=== PATIENT | male | born 1990 | race Caucasian/White ===

== ENCOUNTER 2019-02-08 18:53 | Emergency (ER) | payer BC, OTHER ==
[2019-02-08] MEDS ORDERED: Benzocaine 20% Topical Spray UD MUCMEM ONE (19:34)
[2019-02-08] MEDS ORDERED: Lidocaine 2% Viscous Solution 15 ML Cup PO ONE (19:34)
--- NOTE | 2019-02-08 19:40 | EDM.PDOC ---
ED HPI GENERAL MEDICAL PROBLEM - General Chief Complaint: ENT Problem Stated Complaint: PT HAS SWOLLEN FACE Time Seen by Provider: 02/08/19 19:34 Source of Information: Reports: Patient History Limitations: Reports: No Limitations - History of Present Illness INITIAL COMMENTS - FREE TEXT/NARRATIVE: HISTORY AND PHYSICAL: History of present illness: Patient is a 28-year-old male who presents to the emergency room with complaints of dental pain and facial swelling. He states he has taken some tramadol for home without any pain relief. Patient did receive a prescription for Clindamycin and Iona from [facility]. He has had one dose of his Clindamycin earlier today. Patient denies any fever, chills, headache, change in vision, syncope or near syncope. Denies any chest pain, back pain, shortness of breath or cough. Denies any abdominal pain, nausea, vomiting, diarrhea, constipation or dysuria. Has not noted any blood in urine or stool. Patient has been eating and drinking appropriately. Review of systems: As per history of present illness and below otherwise all systems reviewed and negative. Past medical history: As per history of present illness and as reviewed below otherwise noncontributory. Surgical history: As per history of present illness and as reviewed below otherwise noncontributory. Social history: See social history for further information Family history: As per history of present illness and as reviewed below otherwise noncontributory. Physical exam: General: Well-developed and well-nourished 28-year-old male. Alert and oriented. Nontoxic appearing and in no acute distress. HEENT: Atraumatic, normocephalic, pupils equal and reactive bilaterally, negative for conjunctival pallor or scleral icterus, mucous membranes moist, TMs normal bilaterally, soft tissue swelling to upper jawline. Erythema and swelling of the gumline at #14-15. throat clear, neck supple, nontender, trachea midline. No drooling or trismus noted. No meningeal signs. No hot potato voice noted. Lungs: Clear to auscultation, breath sounds equal bilaterally, chest nontender. Heart: S1S2, regular rate and rhythm without overt murmur Abdomen: Soft, nondistended, nontender. Negative for masses or hepatosplenomegaly. Negative for costovertebral tenderness. Pelvis: Stable nontender. Genitourinary: Deferred. Rectal: Deferred. Skin: Intact, warm, dry. No lesions or rashes noted. Extremities: Atraumatic, moves all extremities per self with difficulty or deficits, negative for cords or calf pain. Neurovascular unremarkable. Neuro: Awake, alert, oriented. Cranial nerves II through XII unremarkable. Cerebellum unremarkable. Motor and sensory unremarkable throughout. Exam nonfocal. Notes: Patient was already seen and evaluated in [place]. He has appropriate prescriptions available to him. He request something for his infection. Will give Rocephin IM now. We discussed the need for appropriate follow-up with the dentist. Supportive care measures were reviewed and discussed. Voices understanding and is agreeable to plan of care. Denies any further questions or concerns at this time. Diagnostics: None Therapeutics: Dental Balls, Rocephin Prescription: None Impression: Dental Abscess Plan: 1. Please take the antibiotic as prescribed. 2. Tylenol and/or ibuprofen as needed for pain management. "Tooth Balls" have been given to you; apply along the gumline every 2-3 hours as needed. Do not swallow these; external use only. Iona for moderate to severe pain (you already have this prescribed to you). 3. Follow-up with a dentist for definitive care. Return to the ED as needed and as discussed. Definitive disposition and diagnosis as appropriate pending reevaluation and review of above. 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 ED EXAM, ENT - Physical Exam Exam: See Below (See dictation) Course - Vital Signs Last Recorded V/S: Last Vital Signs Temp 98.5 F 02/08/19 19:20 Pulse 95 02/08/19 19:20 Resp 18 02/08/19 19:20 BP 144/100 H 02/08/19 19:20 Pulse Ox 99 02/08/19 19:20 - Orders/Labs/Meds Meds: Medications Discontinued Medications Generic Name Dose Route Start Last Admin Trade Name Freq PRN Reason Stop Dose Admin Benzocaine 2 each 02/08/19 19:34 Hurricaine One 20% MUCMEM 02/08/19 19:35 ONETIME ONE Ceftriaxone Sodium 1 gm 02/08/19 19:41 Rocephin IM 02/08/19 19:42 ONETIME ONE Lidocaine HCl 15 ml 02/08/19 19:34 Xylocaine 2% Viscous PO 02/08/19 19:35 ONETIME ONE Departure - Departure Time of Disposition: 19:42 Disposition: Home, Self-Care 01 Clinical Impression: Dental abscess - Discharge Information Instructions: Dental Abscess, [id number] Referrals: PCP,None [Primary Care Provider] - Forms: ED Department Discharge Additional Instructions: The following information is given to patients seen in the emergency department who are being discharged to home. This information is to outline your options for follow-up care. We provide all patients seen in our emergency department with a follow-up referral. The need for follow-up, as well as the timing and circumstances, are variable depending upon the specifics of your emergency department visit. If you don't have a primary care physician on staff, we will provide you with a referral. We always advise you to contact your personal physician following an emergency department visit to inform them of the circumstance of the visit and for follow-up with them and/or the need for any referrals to a consulting specialist. The emergency department will also refer you to a specialist when appropriate. This referral assures that you have the opportunity for follow-up care with a specialist. All of these measure are taken in an effort to provide you with optimal care, which includes your follow-up. Under all circumstances we always encourage you to contact your private physician who remains a resource for coordinating your care. When calling for follow-up care, please make the office aware that this follow-up is from your recent emergency room visit. If for any reason you are refused follow-up, please contact the [facility] Emergency Department at and asked to speak to the emergency department charge nurse. [facility] [address] [place] [address] [address] 1. Please take the antibiotic as prescribed. 2. Tylenol and/or ibuprofen as needed for pain management. "Tooth Balls" have been given to you; apply along the gumline every 2-3 hours as needed. Do not swallow these; external use only. Iona for moderate to severe pain (you already have this prescribed to you). 3. Follow-up with a dentist for definitive care. Return to the ED as needed and as discussed.
[2019-02-08] MEDS ORDERED: cefTRIAXone 1 GM Vial IM ONE (19:41)
== END 2019-02-08 20:18 | disposition home or self-care (01) ==
LOC: MW.ED 18:53
DX: K04.7 Periapical abscess without sinus (principal)
CPT/HCPCS: 96372; 99282; A9270; J0696; J2001

== ENCOUNTER 2019-02-09 09:59 | Observation (INO) | payer BC, OTHER ==
--- NOTE | 2019-02-09 10:27 | EDM.PDOC ---
ED HPI GENERAL MEDICAL PROBLEM - General Chief Complaint: Allergic Reaction Stated Complaint: SWOLLEN FACE Time Seen by Provider: 02/09/19 10:22 Source of Information: Reports: Patient History Limitations: Reports: No Limitations - History of Present Illness INITIAL COMMENTS - FREE TEXT/NARRATIVE: HISTORY AND PHYSICAL: History of present illness: Patient is a 28-year-old male who presents to the ED today for concern of spreading infection from his tooth. Patient states that he was seen in the ED yesterday and was given antibiotic and the ED. He states he started taking his other prescription of clindamycin when he got home from the ED. Patient states that when he awoke the infection had spread up into his left eye. Patient rates his pain a 9 out of 10. Patient was seen yesterday (02/08/2019) in the ED for dental abscess. At that time he was given Rocephin IM, dental balls and instructed to continue his currently prescribed clindamycin/pain medications and follow up with a dentist. Patient states he did take antibiotics as prescribed. Patient denies fever, chills, chest pain, shortness of breath, or cough. Denies headache, neck stiff ness, change in vision, syncope, or near syncope. Denies nausea, vomiting, abdominal pain, diarrhea, constipation, or dysuria. Patient has been eating and drinking appropriately but has had difficulty due to tooth pain. Review of systems: As per history of present illness and below otherwise all systems reviewed and negative. Past medical history: As per history of present illness and as reviewed below otherwise noncontributory. Surgical history: As per history of present illness and as reviewed below otherwise noncontributory. Social history: See social history for further information Family history: As per history of present illness and as reviewed below otherwise noncontributory. Physical exam: General: Patient is alert, oriented, and in no acute distress. He is sitting comfortably on exam table. HEENT: Atraumatic, normocephalic, pupils equal and reactive bilaterally, negative for conjunctival pallor or scleral icterus, mucous membranes moist, TMs normal bilaterally, throat clear, neck supple, nontender, trachea midline. No drooling or trismus noted. No meningeal signs. No hot potato voice noted. Exam of teeth is limited due to pain. There is swelling of the gum lines on tooth #11 and #12. These teeth also have severe pain to palpation. There is edema from the left jaw up into the left lower eyelid that is severe pain to palpation. Patient's is able to open and close left eye and visual acuity intact. Lungs: Clear to auscultation, breath sounds equal bilaterally, chest nontender. Heart: S1S2, regular rate and rhythm without overt murmur Abdomen: Soft, nondistended, nontender. Negative for masses or hepatosplenomegaly. Negative for costovertebral tenderness. Pelvis: Stable nontender. Genitourinary: Deferred. Rectal: Deferred. Skin: Intact, warm, dry. No lesions or rashes noted. Extremities: Atraumatic, negative for cords or calf pain. Neurovascular unremarkable. Neuro: Awake, alert, oriented. Cranial nerves II through XII unremarkable. Cerebellum unremarkable. Motor and sensory unremarkable throughout. Exam nonfocal. Notes: I did see a picture of patient's swelling from yesterday that he had a spun, the swelling today does seem to spread more towards patients left eye in comparison to yesterday. Will do labs and imaging today. Patient has failed outpatient antibiotics. Dr. Valdez was consulted on patient and will admit to observation. Diagnostics: CBC, CMP, Maxillofacial CT Therapeutics: Saline, Unasyn, Morphine Impression: Facial cellulitis Plan: 1. Admit to observation to Dr. Valdez Definitive disposition and diagnosis as appropriate pending reevaluation and review of above. Left Leg Pain Score (Numeric/FACES): 7 Left Face Pain Score (Numeric/FACES): 7 - Related Data Allergies Allergy/AdvReac Type Severity Reaction Status Date / Time No Known Allergies Allergy Verified 02/09/19 10:12 Home Meds: Home Meds Clindamycin HCl [Cleocin] 1 cap PO BID 02/08/19 [History] Codeine/Carisoprodol/Aspirin [Xpgeqogqurjq-Expdxah-Ysvxru Tb] 1 tab PO ASDIRECTED PRN 02/09/19 [History] Past Medical History - Past Health History Medical/Surgical History: Denies Medical/Surgical History - Infectious Disease History Infectious Disease History: Reports: None Social & Family History - Family History Family Medical History: Noncontributory - Tobacco Use Smoking Status *Q: Current Every Day Smoker Years of Tobacco use: 8 Packs/Tins Daily: 1 - Caffeine Use Caffeine Use: Reports: Coffee - Recreational Drug Use Recreational Drug Use: No ED ROS ALLERGIC REACTION - Review of Systems Review Of Systems: ROS reveals no pertinent complaints other than HPI. ED EXAM GENERAL NO PERIP PULSE - Physical Exam Exam: See Below (see dictation) Course - Vital Signs Last Recorded V/S: Last Vital Signs Temp 36.4 C 02/09/19 10:07 Pulse 73 02/09/19 10:07 Resp 18 02/09/19 10:07 BP 152/89 H 02/09/19 10:07 Pulse Ox 98 02/09/19 10:07 - Orders/Labs/Meds Orders: Active Orders 24 hr Category Date Time Status Admission Status [Patient Status] [ADT] Stat ADT 02/09/19 12:30 Active Labs: Laboratory Tests 02/09/19 02/09/19 Range/Units 10:44 10:44 WBC 9.51 (4.0-11.0) K/uL RBC 5.64 (4.50-5.90) M/uL Hgb 17.7 H (13.0-17.0) g/dL Hct 50.3 H (38.0-50.0) % MCV 89.2 (80.0-98.0) fL MCH 31.4 (27.0-32.0) pg MCHC 35.2 (31.0-37.0) g/dL RDW Std Deviation 43.7 (28.0-62.0) fl RDW Coeff of Naveen 13 (11.0-15.0) % Plt Count 163 (150-400) K/uL MPV 9.50 (7.40-12.00) fL Neut % (Auto) 72.5 (48.0-80.0) % Lymph % (Auto) 16.2 (16.0-40.0) % [place] % (Auto) 9.9 (0.0-15.0) % Eos % (Auto) 1.3 (0.0-7.0) % Baso % (Auto) 0.1 (0.0-1.5) % Neut # (Auto) 6.9 H (1.4-5.7) K/uL Lymph # (Auto) 1.5 (0.6-2.4) K/uL [place] # (Auto) 0.9 H (0.0-0.8) K/uL Eos # (Auto) 0.1 (0.0-0.7) K/uL Baso # (Auto) 0.0 (0.0-0.1) K/uL Nucleated RBC % 0.0 /100WBC Nucleated RBCs # 0 K/uL Sodium 140 (136-148) mmol/L Potassium 4.1 (3.5-5.1) mmol/L Chloride 103 (98-107) mmol/L Carbon Dioxide 27.0 (21.0-32.0) mmol/L BUN 9 (7.0-18.0) mg/dL Creatinine 1.1 (0.8-1.3) mg/dL Est Cr Clr Drug Dosing 120.56 mL/min Estimated GFR (MDRD) > 60.0 ml/min Glucose 101 (74-106) mg/dL Calcium 9.6 (8.5-10.1) mg/dL Total Bilirubin 1.0 (0.2-1.0) mg/dL AST 24 (15-37) IU/L ALT 37 (14-63) IU/L Alkaline Phosphatase 74 (46-116) U/L Total Protein 8.3 H (6.4-8.2) g/dL Albumin 4.0 (3.4-5.0) g/dL Globulin 4.3 H (2.6-4.0) g/dL Albumin/Globulin Ratio 0.9 (0.9-1.6) Meds: Medications Discontinued Medications Generic Name Dose Route Start Last Admin Trade Name Freq PRN Reason Stop Dose Admin Ampicillin Sodium/Sulbactam 100 mls @ 200 mls/hr 02/09/19 11:05 02/09/19 11: 41 Sodium 3 gm/ Sodium Chloride IV 02/09/19 11:34 Not Given ONETIME ONE Sodium Chloride 1,000 mls @ 999 mls/hr 02/09/19 11:04 02/09/19 11:40 Normal Saline IV 02/09/19 12:04 999 mls/hr STAT ONE Administration Ampicillin Sodium/Sulbactam 100 mls @ 200 mls/hr 02/09/19 11:30 02/09/19 11: 40 Sodium 3 gm/ Sodium Chloride IV 02/09/19 11:59 200 mls/hr ONETIME ONE Administration Morphine Sulfate 2 mg 02/09/19 11:06 02/09/19 11:40 Morphine IVPUSH 02/09/19 11:07 2 mg ONETIME ONE Administration Departure - Departure Time of Disposition: 12:34 Disposition: Refer to Observation Clinical Impression: Facial cellulitis - Discharge Information Referrals: PCP,Unknown [Primary Care Provider] - - My Orders Last 24 Hours: My Active Orders 02/09/19 12:30 Admission Status [Patient Status] [ADT] Stat - Assessment/Plan Last 24 Hours: My Active Orders 02/09/19 12:30 Admission Status [Patient Status] [ADT] Stat
[2019-02-09] MEDS ORDERED: Sodium Chloride 0.9% 1,000 ML IV ONE (11:04)
[2019-02-09] MEDS ORDERED: Ampicillin/Sulbactam Na 3 GM in Sodium Chloride 0.9% 100 ML IV ONE ×2 (11:05→11:30)
[2019-02-09] MEDS ORDERED: Morphine 2 MG/ML Syringe IVPUSH ONE (11:06)
[2019-02-09 11:32] LABS: CHLORIDE,CL 103 mmol/L (98-107); SODIUM,NA 140 mmol/L (136-148)
--- NOTE | 2019-02-09 12:19 | CT ---
Indication: pt states left sided facial swelling starting yesterday and worsening into today. pt states was in er yesterday for left sided tooth pain and was given antibotics. r/o facial cellulitis/infection Technique: Helical axial sections were obtained through the facial skeleton, mandible and adjacent structures without intravenous contrast material. Data was reformatted not only in axial but also coronal planes. Comparison: No prior studies available for comparison at this institution. Findings: No fracture is demonstrated in the facial skeleton or mandible. There is diffuse left facial subcutaneous soft tissue swelling extending superior to the inferior periorbital soft tissue and inferiorly to the level of the mandible. There is periapical lucency adjacent to the left maxillary central incisor tooth. Periapical lucency and cortical erosion of the left maxillary canine tooth, with significant stranding of adjacent subcutaneous and buccal fat, consistent with odontogenic cellulitis. Large cavity in the left maxillary 3rd molar (wisdom) tooth which projects laterally. Borderline enlarged left level IIa lymph node, probably reactive in etiology. The orbits and their contents are normal in appearance. There is no evidence for penetrating injury to the ocular globes. The lenses are situated in their normally expected anterior locations. No radiodense or metallic foreign body is demonstrated. Mild mucosal thickening in the inferior aspects of the frontal sinuses. Mild anterior and posterior ethmoid sinus disease. Mild sphenoid sinus mucosal thickening. Mild maxillary sinus disease, left greater than right. The ostiomeatal complexes on each side are structurally normal and widely patent. The nasal septum is deviated to the right. The visualized portions of the brain are normal in appearance. Impression: 1. There is diffuse left facial subcutaneous soft tissue swelling extending superior to the inferior periorbital soft tissue and inferiorly to the level of the mandible. There is periapical lucency adjacent to the left maxillary central incisor tooth. Periapical lucency and cortical erosion of the left maxillary canine tooth, with significant stranding of adjacent subcutaneous and buccal fat, consistent with odontogenic cellulitis. 2. No peripherally enhancing collections to suggest abscess. No drainable fluid collections. 3. Mild pansinus disease. Please note that all CT scans at this facility use dose modulation, iterative reconstruction, and/or weight-based dosing when appropriate to reduce radiation dose to as low as reasonably achievable. Dictated by Walter Marques MD @ Feb 09 2019 12:05PM Signed by Dr. Walter Marques @ Feb 09 2019 12:18PM
[2019-02-09] MEDS: oxyCODONE 5 MG Tab PO PRN (15:44)
[2019-02-09] MEDS: Vancomycin 1.5 GM in Sodium Chloride 0.9% 500 ML IV SCH (16:34)
--- NOTE | 2019-02-09 19:54 | PCM.HP ---
H&P History of Present Illness - General Date of Service: 02/09/19 Admit Problem/Dx: Admission Diagnosis/Problem Admission Diagnosis/Problem Cellulitis - History of Present Illness Initial Comments - Free Text/Narative: 28 yo male who presents to the ED with facial swelling. He has a history of a toothache he called his dentist who gave him a prescription of clindamycin but told him he need to see another dentist to pull it. He was seen last night in the ED and given Rocephin. This morning it worsened prompting him to return to the ED. CT scan of the face was suggestive of periorbital cellulitis from odonotgenic origins. Left Leg Pain Score (Numeric/FACES): 7 Left Face Pain Score (Numeric/FACES): 1 - Related Data Allergies/Adverse Reactions: Allergies Allergy/AdvReac Type Severity Reaction Status Date / Time No Known Allergies Allergy Verified 02/09/19 10:12 Home Medications: Home Meds Clindamycin HCl [Cleocin] 1 cap PO QID 02/08/19 [History] Codeine/Carisoprodol/Aspirin [Sdmmayjutdvx-Vtltuif-Ckmlub Tb] 1 tab PO ASDIRECTED PRN 02/09/19 [History] Ibuprofen 400 mg PRN 02/09/19 [History] Past Medical History - Past Health History Medical/Surgical History: Denies Medical/Surgical History - Infectious Disease History Infectious Disease History: Reports: None Social & Family History - Family History Family Medical History: Noncontributory - Tobacco Use Smoking Status *Q: Current Every Day Smoker Years of Tobacco use: 8 Packs/Tins Daily: 1 Used Tobacco, but Quit: No - Caffeine Use Caffeine Use: Reports: Soda - Recreational Drug Use Recreational Drug Use: No H&P Review of Systems - Review of Systems: Review Of Systems: ROS reveals no pertinent complaints other than HPI. Exam - Exam Exam: See Below - Vital Signs Vital Signs: Last Vital Signs Temp 2.9 C L 02/09/19 16:00 Pulse 98 02/09/19 16:00 Resp 18 02/09/19 16:00 BP 121/77 02/09/19 16:00 Pulse Ox 97 02/09/19 16:00 Weight: 92.125 kg - Exam General: Alert, Oriented HEENT: Conjunctiva Clear (edema of the left cheek), EOMI, Mucosa Moist & [place], Other (left cheek swelling, poor dentition) Neck: Supple, Trachea Midline Lungs: Clear to Auscultation, Normal Respiratory Effort Cardiovascular: Regular Rate, Regular Rhythm GI/Abdominal Exam: Normal Bowel Sounds, Soft, Non-Tender - Patient Data Lab Results Last 24 hrs: Laboratory Results - last 24 hr 02/09/19 02/09/19 Range/Units 10:44 10:44 WBC 9.51 (4.0-11.0) K/uL RBC 5.64 (4.50-5.90) M/uL Hgb 17.7 H (13.0-17.0) g/dL Hct 50.3 H (38.0-50.0) % MCV 89.2 (80.0-98.0) fL MCH 31.4 (27.0-32.0) pg MCHC 35.2 (31.0-37.0) g/dL RDW Std Deviation 43.7 (28.0-62.0) fl RDW Coeff of Naveen 13 (11.0-15.0) % Plt Count 163 (150-400) K/uL MPV 9.50 (7.40-12.00) fL Neut % (Auto) 72.5 (48.0-80.0) % Lymph % (Auto) 16.2 (16.0-40.0) % [place] % (Auto) 9.9 (0.0-15.0) % Eos % (Auto) 1.3 (0.0-7.0) % Baso % (Auto) 0.1 (0.0-1.5) % Neut # (Auto) 6.9 H (1.4-5.7) K/uL Lymph # (Auto) 1.5 (0.6-2.4) K/uL [place] # (Auto) 0.9 H (0.0-0.8) K/uL Eos # (Auto) 0.1 (0.0-0.7) K/uL Baso # (Auto) 0.0 (0.0-0.1) K/uL Nucleated RBC % 0.0 /100WBC Nucleated RBCs # 0 K/uL Sodium 140 (136-148) mmol/L Potassium 4.1 (3.5-5.1) mmol/L Chloride 103 (98-107) mmol/L Carbon Dioxide 27.0 (21.0-32.0) mmol/L BUN 9 (7.0-18.0) mg/dL Creatinine 1.1 (0.8-1.3) mg/dL Est Cr Clr Drug Dosing 120.56 mL/min Estimated GFR (MDRD) > 60.0 ml/min Glucose 101 (74-106) mg/dL Calcium 9.6 (8.5-10.1) mg/dL Total Bilirubin 1.0 (0.2-1.0) mg/dL AST 24 (15-37) IU/L ALT 37 (14-63) IU/L Alkaline Phosphatase 74 (46-116) U/L Total Protein 8.3 H (6.4-8.2) g/dL Albumin 4.0 (3.4-5.0) g/dL Globulin 4.3 H (2.6-4.0) g/dL Albumin/Globulin Ratio 0.9 (0.9-1.6) Result Diagrams: 02/09/19 10:44 02/09/19 10:44 Problem List Initiated/Reviewed/Updated: Yes Orders Last 24hrs: Active Orders 24 hr Category Date Time Status Admission Status [Patient Status] [ADT] Stat ADT 02/09/19 12:30 Active Oxygen Therapy [RC] PRN Care 02/09/19 19:44 Ordered Up ad Aubree [RC] ASDIRECTED Care 02/09/19 19:44 Ordered VTE/DVT Education [RC] PER UNIT ROUTINE Care 02/09/19 19:44 Ordered Vital Signs [RC] Q4H Care 02/09/19 19:44 Ordered Regular Diet [DIET] Diet 02/09/19 Dinner Active BASIC METABOLIC PANEL,BMP [CHEM] AM Lab 02/10/19 05:11 Ordered CBC WITH AUTO DIFF [HEME] AM Lab 02/10/19 05:11 Ordered VANCOMYCIN TROUGH [CHEM] Routine Lab 02/10/19 15:00 Ordered Ampicillin/Sulbactam Na [Unasyn] 3 gm Med 02/09/19 19:45 Ordered Sodium Chloride 0.9% [Normal Saline] 100 ml IV Q6H Pharmacy to Dose - Vancomycin Med 02/09/19 15:45 Active 1 dose .XX ASDIRECTED Vancomycin 1.5 gm Med 02/09/19 16:00 Active Sodium Chloride 0.9% [Normal Saline] 500 ml IV Q8H oxyCODONE Med 02/09/19 15:30 Active 5 mg PO Q6H PRN Resuscitation Status Routine Resus Stat 02/09/19 19:44 Ordered Medication Orders Vancomycin HCl 1.5 gm/ Sodium (Chloride) 500 mls @ 250 mls/hr IV Q8H [facility] Last Admin: 02/09/19 16:34 Dose: 250 mls/hr Ampicillin Sodium/Sulbactam (Sodium 3 gm/ Sodium Chloride) 100 mls @ 200 mls/ hr IV Q6H [facility] Oxycodone HCl (Oxycodone) 5 mg PO Q6H PRN PRN Reason: Pain Last Admin: 02/09/19 15:44 Dose: 5 mg Vancomycin HCl (Pharmacy To Dose - Vancomycin) 1 dose .XX ASDIRECTED [facility] Assessment/Plan Comment:: 28 yo male admitted for failure of outpatient management of odontogenic facial cellulitis. We will treat with vancomycin and Zosyn. Patient will be calling for a dentist appointment tomorrow.
[2019-02-09] MEDS: Ampicillin/Sulbactam Na 3 GM in Sodium Chloride 0.9% 100 ML IV SCH (20:05)
[2019-02-10] MEDS: oxyCODONE 5 MG Tab PO PRN (00:10)
[2019-02-10] MEDS: Ampicillin/Sulbactam Na 3 GM in Sodium Chloride 0.9% 100 ML IV SCH ×4 (02:25→19:50)
[2019-02-10 06:21] LABS: CHLORIDE,CL 104 mmol/L (98-107); SODIUM,NA 139 mmol/L (136-148)
--- NOTE | 2019-02-10 07:37 | PCM.PN ---
- General Info Date of Service: 02/10/19 - Review of Systems Systems Review Comment:: pain is controlled - Patient Data Vitals - Most Recent: Last Vital Signs Temp 37.3 C 02/10/19 04:45 Pulse 80 02/10/19 04:45 Resp 16 02/10/19 04:45 BP 114/63 02/10/19 04:45 Pulse Ox 93 L 02/10/19 04:45 Weight - Most Recent: 92.125 kg I&O - Last 24 Hours: Intake & Output 02/09/19 02/10/19 02/10/19 22:59 06:59 14:59 Intake Total 200 400 Output Total 1200 Balance 200 -800 Lab Results Last 24 Hours: Laboratory Results - last 24 hr 02/09/19 02/09/19 02/10/19 Range/Units 10:44 10:44 05:35 WBC 9.51 8.83 (4.0-11.0) K/uL RBC 5.64 5.30 (4.50-5.90) M/uL Hgb 17.7 H 16.2 (13.0-17.0) g/dL Hct 50.3 H 47.6 (38.0-50.0) % MCV 89.2 89.8 (80.0-98.0) fL MCH 31.4 30.6 (27.0-32.0) pg MCHC 35.2 34.0 (31.0-37.0) g/dL RDW Std Deviation 43.7 43.5 (28.0-62.0) fl RDW Coeff of Naveen 13 13 (11.0-15.0) % Plt Count 163 181 (150-400) K/uL MPV 9.50 9.70 (7.40-12.00) fL Neut % (Auto) 72.5 60.0 (48.0-80.0) % Lymph % (Auto) 16.2 24.7 (16.0-40.0) % Thurston % (Auto) 9.9 12.7 (0.0-15.0) % Eos % (Auto) 1.3 2.5 (0.0-7.0) % Baso % (Auto) 0.1 0.1 (0.0-1.5) % Neut # (Auto) 6.9 H 5.3 (1.4-5.7) K/uL Lymph # (Auto) 1.5 2.2 (0.6-2.4) K/uL Thurston # (Auto) 0.9 H 1.1 H (0.0-0.8) K/uL Eos # (Auto) 0.1 0.2 (0.0-0.7) K/uL Baso # (Auto) 0.0 0.0 (0.0-0.1) K/uL Nucleated RBC % 0.0 0.0 /100WBC Nucleated RBCs # 0 0 K/uL Sodium 140 (136-148) mmol/L Potassium 4.1 (3.5-5.1) mmol/L Chloride 103 (98-107) mmol/L Carbon Dioxide 27.0 (21.0-32.0) mmol/L BUN 9 (7.0-18.0) mg/dL Creatinine 1.1 (0.8-1.3) mg/dL Est Cr Clr Drug Dosing 120.56 mL/min Estimated GFR (MDRD) > 60.0 ml/min Glucose 101 (74-106) mg/dL Calcium 9.6 (8.5-10.1) mg/dL Total Bilirubin 1.0 (0.2-1.0) mg/dL AST 24 (15-37) IU/L ALT 37 (14-63) IU/L Alkaline Phosphatase 74 (46-116) U/L Total Protein 8.3 H (6.4-8.2) g/dL Albumin 4.0 (3.4-5.0) g/dL Globulin 4.3 H (2.6-4.0) g/dL Albumin/Globulin Ratio 0.9 (0.9-1.6) 02/10/19 Range/Units 05:35 WBC (4.0-11.0) K/uL RBC (4.50-5.90) M/uL Hgb (13.0-17.0) g/dL Hct (38.0-50.0) % MCV (80.0-98.0) fL MCH (27.0-32.0) pg MCHC (31.0-37.0) g/dL RDW Std Deviation (28.0-62.0) fl RDW Coeff of Naveen (11.0-15.0) % Plt Count (150-400) K/uL MPV (7.40-12.00) fL Neut % (Auto) (48.0-80.0) % Lymph % (Auto) (16.0-40.0) % Thur[place] % (Auto) (0.0-15.0) % Eos % (Auto) (0.0-7.0) % Baso % (Auto) (0.0-1.5) % Neut # (Auto) (1.4-5.7) K/uL Lymph # (Auto) (0.6-2.4) K/uL Thurston # (Auto) (0.0-0.8) K/uL Eos # (Auto) (0.0-0.7) K/uL Baso # (Auto) (0.0-0.1) K/uL Nucleated RBC % /100WBC Nucleated RBCs # K/uL Sodium 139 (136-148) mmol/L Potassium 4.0 (3.5-5.1) mmol/L Chloride 104 (98-107) mmol/L Carbon Dioxide 25.5 (21.0-32.0) mmol/L BUN 11 (7.0-18.0) mg/dL Creatinine 1.2 (0.8-1.3) mg/dL Est Cr Clr Drug Dosing 110.52 mL/min Estimated GFR (MDRD) > 60.0 ml/min Glucose 88 (74-106) mg/dL Calcium 9.1 (8.5-10.1) mg/dL Total Bilirubin (0.2-1.0) mg/dL AST (15-37) IU/L ALT (14-63) IU/L Alkaline Phosphatase (46-116) U/L Total Protein (6.4-8.2) g/dL Albumin (3.4-5.0) g/dL Globulin (2.6-4.0) g/dL Albumin/Globulin Ratio (0.9-1.6) Med Orders - Current: Current Medications Vancomycin HCl 1.5 gm/ Sodium (Chloride) 500 mls @ 250 mls/hr IV Q8H [facility] Last Admin: 02/10/19 00:00 Dose: 250 mls/hr Ampicillin Sodium/Sulbactam (Sodium 3 gm/ Sodium Chloride) 100 mls @ 200 mls/ hr IV Q6H [facility] Last Admin: 02/10/19 02:25 Dose: 200 mls/hr Oxycodone HCl (Oxycodone) 5 mg PO Q6H PRN PRN Reason: Pain Last Admin: 02/10/19 00:10 Dose: 5 mg Vancomycin HCl (Pharmacy To Dose - Vancomycin) 1 dose .XX ASDIRECTED [facility] Discontinued Medications Ampicillin Sodium/Sulbactam (Sodium 3 gm/ Sodium Chloride) 100 mls @ 200 mls/ hr IV ONETIME ONE Stop: 02/09/19 11:34 Last Admin: 02/09/19 11:41 Dose: Not Given Sodium Chloride (Normal Saline) 1,000 mls @ 999 mls/hr IV STAT ONE Stop: 02/09/19 12:04 Last Admin: 02/09/19 11:40 Dose: 999 mls/hr Ampicillin Sodium/Sulbactam (Sodium 3 gm/ Sodium Chloride) 100 mls @ 200 mls/ hr IV ONETIME ONE Stop: 02/09/19 11:59 Last Admin: 02/09/19 11:40 Dose: 200 mls/hr Morphine Sulfate (Morphine) 2 mg IVPUSH ONETIME ONE Stop: 02/09/19 11:07 Last Admin: 02/09/19 11:40 Dose: 2 mg - Exam General: Alert, Oriented HEENT: Other (sweeling of left cheek stable) Lungs: Clear to Auscultation, Normal Respiratory Effort GI/Abdominal Exam: Normal Bowel Sounds, Soft, Non-Tender Extremities: Non-Tender, No Pedal Edema Skin: Warm, Dry, Intact - Problem List Review Problem List Initiated/Reviewed/Updated: Yes - My Orders Last 24 Hours: My Active Orders 02/09/19 15:30 oxyCODONE 5 mg PO Q6H PRN 02/09/19 15:45 Pharmacy to Dose - Vancomycin 1 dose .XX ASDIRECTED 02/09/19 16:00 Vancomycin 1.5 gm Sodium Chloride 0.9% [Normal Saline] 500 ml IV Q8H 02/09/19 19:44 Oxygen Therapy [RC] PRN Up ad Aubree [RC] ASDIRECTED VTE/DVT Education [RC] PER UNIT ROUTINE Vital Signs [RC] Q4H Resuscitation Status Routine 02/09/19 20:00 Ampicillin/Sulbactam Na [Unasyn] 3 gm Sodium Chloride 0.9% [Normal Saline] 100 ml IV Q6H 02/09/19 Dinner Regular Diet [DIET] 02/10/19 15:00 VANCOMYCIN TROUGH [CHEM] Routine - Plan Plan:: 28 yo male admitted for failure of outpatient management of odontogenic facial cellulitis. We will continue vancomycin and Zosyn. Will try to arrange follow up with dentist. Likely discharge home tomorrow.
[2019-02-10] MEDS: Vancomycin 1.5 GM in Sodium Chloride 0.9% 500 ML IV SCH ×4 (09:03→16:31)
[2019-02-11] MEDS: Vancomycin 1.5 GM in Sodium Chloride 0.9% 500 ML IV SCH ×2 (00:05→08:48)
[2019-02-11] MEDS: Ampicillin/Sulbactam Na 3 GM in Sodium Chloride 0.9% 100 ML IV SCH ×2 (02:15→07:57)
--- NOTE | 2019-02-11 07:34 | PCM.DCSUM1 ---
Discharge Summary - Discharge Data Discharge Date: 02/11/19 Discharge Disposition: Home, Self-Care 01 Condition: Good - Patient Summary/Data Hospital Course: The patient is a 28-year-old gentleman who had been admitted to acute hospitalization secondary to odontogenic facial cellulitis. The patient had been admitted on February 09, 2019. Because of the facial cellulitis the patient was started on vancomycin 1.5 g and Unasyn. The patient is well aware of the abscessed tooth that is causing his cellulitis. He does have an appointment with dentist tomorrow. A CT scan of the face obtained to the emergency department had suggested a periorbital cellulitis secondary to abscess tooth. Initially the patient's white blood cell count was normal and by day of discharge it was also normal at 8000. His metabolic panel remained normal. The patient had improved to the short course of hospitalization. The patient also had been afebrile throughout the course of hospitalization. The patient's other vital signs it also remained stable. The patient was also discharged on Augmentin 875/125 mg and he was instructed to take 1 tab by mouth twice a day for 10 days. The patient also had been tolerating diet by day of discharge. He has been recommended to continue with his diet at home as tolerated. He is also been recommended to continue with his activity as tolerated. He is to follow-up with primary care physician or dentist as scheduled. The patient has been hemodynamically stable and he has been discharged from hospitalization with the recommendations listed above. - Patient Instructions Diet: Usual Diet as Tolerated Activity: As Tolerated Notify Provider of: Fever, Increased Pain - Discharge Plan *PRESCRIPTION DRUG MONITORING PROGRAM REVIEWED*: No *COPY OF PRESCRIPTION DRUG MONITORING REPORT IN PATIENT ARLET: No Prescriptions/Med Rec: Amoxicillin/Clavulanate K [Augmentin 875-125 MG] 1 tab PO BID #10 tab Home Medications: Home Meds Amoxicillin/Clavulanate K [Augmentin 875-125 MG] 1 tab PO BID #10 tab 02/11/19 [ Rx] Oxygen Therapy Mode: Room Air Patient Handouts: Amoxicillin capsules or tablets, Diet and Dental Disease, Cellulitis, Adult, [id number] Referrals: Ashley Solares PA [Physician Meal Temperer] - 02/25/19 2:00 pm - Discharge Summary/Plan Comment DC Time >30 min.: Yes - General Info Date of Service: 02/11/19 Admission Dx/Problem (Free Text: Admission Diagnosis/Problem Admission Diagnosis/Problem Cellulitis odontogenic, left side of face, significantly improved Functional Status: Reports: Pain Controlled - Review of Systems General: Reports: No Symptoms HEENT: Reports: No Symptoms Pulmonary: Reports: No Symptoms Cardiovascular: Reports: No Symptoms Gastrointestinal: Reports: No Symptoms Genitourinary: Reports: No Symptoms Musculoskeletal: Reports: No Symptoms Skin: Reports: No Symptoms Neurological: Reports: No Symptoms Psychiatric: Reports: No Symptoms - Patient Data Vitals - Most Recent: Last Vital Signs Temp 36.8 C 02/11/19 04:40 Pulse 62 02/11/19 04:40 Resp 18 02/11/19 04:40 BP 121/52 L 02/11/19 04:40 Pulse Ox 96 02/11/19 04:40 Weight - Most Recent: 92.125 kg I&O - Last 24 hours: Intake & Output 02/10/19 02/11/19 02/11/19 22:59 06:59 14:59 Intake Total 1140 1400 Output Total 820 1000 Balance 320 400 Lab Results - Last 24 hrs: Laboratory Results - last 24 hr 02/10/19 Range/Units 14:51 Vancomycin Trough 14.7 H (5.0-10.0) ug/mL Med Orders - Current: Current Medications Vancomycin HCl 1.5 gm/ Sodium (Chloride) 500 mls @ 250 mls/hr IV Q8H [facility] Last Admin: 02/11/19 00:05 Dose: 250 mls/hr Ampicillin Sodium/Sulbactam (Sodium 3 gm/ Sodium Chloride) 100 mls @ 200 mls/ hr IV Q6H [facility] Last Admin: 02/11/19 02:15 Dose: 200 mls/hr Oxycodone HCl (Oxycodone) 5 mg PO Q6H PRN PRN Reason: Pain Last Admin: 02/10/19 00:10 Dose: 5 mg Vancomycin HCl (Pharmacy To Dose - Vancomycin) 1 dose .XX ASDIRECTED [facility] Discontinued Medications Ampicillin Sodium/Sulbactam (Sodium 3 gm/ Sodium Chloride) 100 mls @ 200 mls/ hr IV ONETIME ONE Stop: 02/09/19 11:34 Last Admin: 02/09/19 11:41 Dose: Not Given Sodium Chloride (Normal Saline) 1,000 mls @ 999 mls/hr IV STAT ONE Stop: 02/09/19 12:04 Last Admin: 02/09/19 11:40 Dose: 999 mls/hr Ampicillin Sodium/Sulbactam (Sodium 3 gm/ Sodium Chloride) 100 mls @ 200 mls/ hr IV ONETIME ONE Stop: 02/09/19 11:59 Last Admin: 02/09/19 11:40 Dose: 200 mls/hr Morphine Sulfate (Morphine) 2 mg IVPUSH ONETIME ONE Stop: 02/09/19 11:07 Last Admin: 02/09/19 11:40 Dose: 2 mg - Exam Quality Assessment: Denies: Supplemental Oxygen General: Reports: Alert, Oriented HEENT: Reports: Pupils Equal, Pupils Reactive, EOMI, Mucous Membr. Moist/[place] Neck: Reports: Supple, Trachea Midline Lungs: Reports: Clear to Auscultation, Normal Respiratory Effort Cardiovascular: Reports: Regular Rate, Regular Rhythm GI/Abdominal Exam: Normal Bowel Sounds, Soft, Non-Tender, No Distention (Male) Exam: Deferred Rectal (Males) Exam: Deferred Back Exam: Reports: Normal Inspection, Full Range of Motion Extremities: Normal Inspection, Normal Range of Motion, Non-Tender, No Pedal Edema Skin: Reports: Warm, Dry, Intact Neurological: Reports: No New Focal Deficit, Normal Gait Psy/Mental Status: Reports: Alert, Normal Affect, Normal Mood
== END 2019-02-11 11:30 | disposition home or self-care (01) ==
LOC: MW.ED 09:59 → MW.MS 13:12
PROVIDERS: ADMIT Internal Medicine; ATTEND Internal Medicine
DX: L03.211 Cellulitis of face (principal); K04.7 Periapical abscess without sinus; F17.200 Nicotine dependence, unspecified, uncomplicated
CPT/HCPCS: 36415; 70486; 80048; 80053; 80202; 85025; 96365; 96366; 96367; 96368; 96375; 96376; 99284; A9270; G0378; J0295; J2270; J3370; J7030; J7040; 99283

== ENCOUNTER 2019-07-03 09:28 | Emergency (ER) | payer BC ==
--- NOTE | 2019-07-03 09:48 | EDM.PDOC ---
ED HPI GENERAL MEDICAL PROBLEM - General Chief Complaint: ENT Problem Stated Complaint: SWELLING /TOOTHACHE Time Seen by Provider: 07/03/19 09:41 - History of Present Illness INITIAL COMMENTS - FREE TEXT/NARRATIVE: HISTORY AND PHYSICAL: History of present illness: Patient's 29-year-old male presents with a concern of dental abscesses left facial swelling he's had this recurrent off-and-on is been unable to secure definitive dental care he is working on that as we speak been no fever chills nausea vomiting he does have antibiotics that he recently filled Review of systems: As per history of present illness and below otherwise all systems reviewed and negative. Past medical history: As per history of present illness and as reviewed below otherwise noncontributory. Surgical history: As per history of present illness and as reviewed below otherwise noncontributory. Social history: No reported history of drug or alcohol abuse. Family history: As per history of present illness and as reviewed below otherwise noncontributory. Physical exam: HEENT: Atraumatic, normocephalic, pupils reactive, negative for conjunctival pallor or scleral icterus, mucous membranes moist, throat clear, neck supple, nontender, trachea midline. Left facial and periorbital swelling consistent with left maxillary dental Lungs: Clear to auscultation, breath sounds equal bilaterally, chest nontender. Heart: S1S2, regular, negative for clicks, rubs, or JVD. Abdomen: Soft, nondistended, nontender. Negative for masses or hepatosplenomegaly. Negative for costovertebral tenderness. Pelvis: Stable nontender. Genitourinary: Deferred. Rectal: Deferred. Extremities: Atraumatic, negative for cords or calf pain. Neurovascular unremarkable. Neuro: Awake, alert, oriented. Cranial nerves II through XII unremarkable. Cerebellum unremarkable. Motor and sensory unremarkable throughout. Exam nonfocal. Diagnostics: None Therapeutics: None Impression: #1 dental abscess Definitive disposition and diagnosis as appropriate pending reevaluation and review of above. Left Face/Facial Pain Score (Numeric/FACES): 1 - Related Data Allergies Allergy/AdvReac Type Severity Reaction Status Date / Time No Known Allergies Allergy Verified 07/03/19 09:37 Home Meds: Home Meds Amoxicillin/Clavulanate K [Augmentin 875-125 MG] 1 tab PO BID #10 tab 02/11/19 [ Rx] Past Medical History - Past Health History Medical/Surgical History: Denies Medical/Surgical History - Infectious Disease History Infectious Disease History: Reports: None Social & Family History - Family History Family Medical History: Noncontributory - Tobacco Use Smoking Status *Q: Current Every Day Smoker Years of Tobacco use: 10 Packs/Tins Daily: 1 - Caffeine Use Caffeine Use: Reports: Soda - Recreational Drug Use Recreational Drug Use: No ED ROS GENERAL - Review of Systems Review Of Systems: ROS reveals no pertinent complaints other than HPI. ED EXAM, GENERAL - Physical Exam Exam: See Below (The dictation) Course - Vital Signs Last Recorded V/S: Last Vital Signs Temp 36.0 C 07/03/19 09:32 Pulse 89 07/03/19 09:32 Resp 18 07/03/19 09:32 BP 118/78 07/03/19 09:32 Pulse Ox 96 07/03/19 09:32 Departure - Departure Time of Disposition: 09:47 Disposition: Home, Self-Care 01 Condition: Good Clinical Impression: Dental abscess - Discharge Information Referrals: PCP,None [Primary Care Provider] - Additional Instructions: The following information is given to patients seen in the emergency department who are being discharged to home. This information is to outline your options for follow-up care. We provide all patients seen in our emergency department with a follow-up referral. The need for follow-up, as well as the timing and circumstances, are variable depending upon the specifics of your emergency department visit. If you don't have a primary care physician on staff, we will provide you with a referral. We always advise you to contact your personal physician following an emergency department visit to inform them of the circumstance of the visit and for follow-up with them and/or the need for any referrals to a consulting specialist. The emergency department will also refer you to a specialist when appropriate. This referral assures that you have the opportunity for followup care with a specialist. All of these measure are taken in an effort to provide you with optimal care, which includes your followup. Under all circumstances we always encourage you to contact your private physician who remains a resource for coordinating your care. When calling for followup care, please make the office aware that this follow-up is from your recent emergency room visit. If for any reason you are refused follow-up, please contact the [facility] emergency department at and asked to speak to the emergency department charge nurse. Continue antibiotics as directed follow-up dentist as discussed return as needed as discussed
== END 2019-07-03 10:01 | disposition home or self-care (01) ==
LOC: MW.ED 09:28
DX: K04.7 Periapical abscess without sinus (principal); F17.210 Nicotine dependence, cigarettes, uncomplicated
CPT/HCPCS: 99282; 99283